=== PATIENT | male | born 1975 | race Caucasian/White ===

== ENCOUNTER → 2020-12-16 06:57 | Outpatient (CLI) | payer BC, SELFPAY ==
[2020-12-16 20:23] LABS: SARS-CoV-2 RNA PCR Negative
== END ==
PROVIDERS: PCP Internal Medicine; Visit Provider Nurse Practitioner
DX: R51.9 Headache, unspecified (principal); Z20.822 Contact with and (suspected) exposure to COVID-19
CPT/HCPCS: C9803; U0003; U0005